=== PATIENT | female | born 1990 ===

== ENCOUNTER 2023-10-30 08:35 | Emergency (ER) | payer MEDICAID ==
[~2023-10-30] VITALS: Ht 167.6 cm; Wt 70.7 kg
[2023-10-30 08:58] VITALS: TEMP 98.3
[2023-10-30 11:27] VITALS: BP 118/70; PULSE 77; RESP 18; O2SAT 96
== END 2023-10-30 11:58 | disposition home or self-care (01) ==
LOC: EMS 08:35
DX: Z13.9 Encounter for screening, unspecified (principal)
CPT/HCPCS: 99281; Z7502